=== PATIENT | female | born 1965 | race Caucasian/White ===

== ENCOUNTER → 2017-02-26 14:54 | Outpatient (CLI) | payer BC | END | disposition home or self-care (01) | LOC: D.RAD 14:15 | DX: R68.84 Jaw pain (principal) ==

== ENCOUNTER 2018-06-19 12:39 | Emergency (ER) | payer BC ==
[~2018-06-19] VITALS: Ht 165.1 cm; Wt 84.5 kg
[2018-06-19 12:50] VITALS: Ht 165.1 cm; Wt 84.5 kg
[2018-06-19] MEDS ORDERED: MOBIC7.5 MG PO (12:57)
[2018-06-19] MEDS ORDERED: PROTONIX20 MG PO (12:57)
[2018-06-19] MEDS ORDERED: PREDNISONE20 MG PO (12:57)
[2018-06-19] MEDS ORDERED: FLAGYL500 MG PO (12:59)
[2018-06-19] MEDS ORDERED: CARAFATE1 G PO (12:59)
[2018-06-19] MEDS ORDERED: PROBIOTIC1 EAC1 PO (12:59)
[2018-06-19 14:10] LABS: BASOPHILS 0.3 % (0-2); EOSINOPHILS 0 % (0-7); HEMATOCRIT 35.6 % (36.0-48.0); HEMOGLOBIN 12.2 g/dL (12-16); IMMATURE GRANULOCYTES 0.8 % (0-5); MCH 36.1 pg (26.0-34.0); MCHC 34.3 g/dL (31.0-37.0); MCV 105.3 fL (80.0-100.0); MEAN PLATELET VOLUME 9.4 fL (7.4-10.4); MONOCYTES 4.6 % (2-11); NEUTROPHILS 79.3 % (40-80); PLATELET COUNT 62 10x3/uL (130-400); RBC 3.38 10x6/uL (4.00-5.40); RDW 13.7 % (11.5-14.5); WBC 3.7 10x3/uL (4.8-10.8)
[2018-06-19 14:27] LABS: APPEARANCE HAZY (CLEAR); BILIRUBIN NEGATIVE (NEGATIVE); COLOR YELLOW (YELLOW); GLUCOSE NEGATIVE (NEGATIVE); KETONE NEGATIVE (NEGATIVE); NITRITE NEGATIVE (NEGATIVE); PROTEIN NEGATIVE (NEGATIVE); UROBILINOGEN NORMAL (NORMAL)
[2018-06-19 14:28] LABS: BACTERIA MODERATE /hpf (NONE SEEN); EPITHELIAL CELLS 0-5 /hpf (0-5); MUCUS <1+ /lpf (NONE SEEN); RED CELLS - URINE 0-5 /hpf (0-5); WHITE CELLS - URINE 0-5 /hpf (0-5)
[2018-06-19 14:29] LABS: ALBUMIN 3.8 g/dL (3.4-5.0); ALKALINE PHOSPHATASE 70 U/L (46-116); ALT (SGPT) 35 U/L (10-68); BILIRUBIN - TOTAL 0.73 mg/dL (0.2-1.3); CALC OSMOLALITY 282 mosm/kg (275-300); CALCIUM 8.5 mg/dL (8.5-10.1); CARBON DIOXIDE 30.1 mmol/L (21.0-32.0); CHLORIDE - SERUM 105 mmol/L (98-107); CREATININE - SERUM 0.9 mg/dL (0.6-1.3); GLUCOSE 143 mg/dL (74-106); PROTEIN - SERUM 6.3 g/dL (6.4-8.2); SODIUM 140 mmol/L (136-145); UREA NITROGEN 18 mg/dL (7-18); eGFR NON AFRICAN AMERICAN 69 mL/min (90-120)
[2018-06-19 14:37] LABS: AMYLASE - SERUM 24 U/L (25-115); CKMB 0.8 U/L (0.0-3.6); CREATINE KINASE 32 UL (21-215); LIPASE 211 U/L (73-393); TROPONIN-I < 0.017 ng/mL (0.000-0.060)
[2018-06-19 14:43] LABS: PLATELET ESTIMATE DECREASED
[2018-06-19 18:50] VITALS: BP 126/81
[2018-07-16 13:15] VITALS: Ht 165.1 cm; Wt 84.5 kg
== END 2018-06-19 19:10 | disposition home or self-care (01) ==
LOC: D.ER 12:39
PROVIDERS: Family Medicine
DX: R10.13 Epigastric pain (principal); R19.7 Diarrhea, unspecified; D61.818 Other pancytopenia; Z85.820 Personal history of malignant melanoma of skin

== ENCOUNTER 2018-06-25 17:52 | Emergency (ER) | payer BC ==
[~2018-06-25] VITALS: Ht 165.1 cm; Wt 84.1 kg
[~2018-06-25 17:52] MED LIST: CARAFATE1 G PO; FLAGYL500 MG PO; MOBIC7.5 MG PO; PREDNISONE20 MG PO; PROBIOTIC1 EAC1 PO; PROTONIX20 MG PO
[2018-06-25 18:10] VITALS: Ht 165.1 cm; Wt 84.1 kg
[2018-06-25 18:50] LABS: BASOPHILS 0.2 % (0-2); EOSINOPHILS 0 % (0-7); HEMATOCRIT 35.9 % (36.0-48.0); HEMOGLOBIN 12.5 g/dL (12-16); IMMATURE GRANULOCYTES 0.9 % (0-5); LYMPHOCYTES 15.8 % (15-50); MCH 36.4 pg (26.0-34.0); MCHC 34.8 g/dL (31.0-37.0); MCV 104.7 fL (80.0-100.0); MEAN PLATELET VOLUME 9.2 fL (7.4-10.4); MONOCYTES 9.3 % (2-11); NEUTROPHILS 73.8 % (40-80); PLATELET COUNT 60 10x3/uL (130-400); RBC 3.43 10x6/uL (4.00-5.40); RDW 13.8 % (11.5-14.5); WBC 4.6 10x3/uL (4.8-10.8)
[2018-06-25 19:08] LABS: APTT 27.4 SECONDS (22.8-39.4); INR 1.05 (0.85-1.17); PROTIME 13.3 SECONDS (11.6-15.0)
[2018-06-25 20:25] LABS: PLATELET ESTIMATE DECREASED
[2018-06-25 20:36] LABS: ANION GAP 14.3 mmol/L (8-16); BILIRUBIN - TOTAL 0.67 mg/dL (0.2-1.3); CALCIUM 8.3 mg/dL (8.5-10.1); CARBON DIOXIDE 24.6 mmol/L (21.0-32.0); CREATININE - SERUM 0.9 mg/dL (0.6-1.3); POTASSIUM - SERUM 3.9 mmol/L (3.5-5.1); PROTEIN - SERUM 6.6 g/dL (6.4-8.2)
[2018-06-26 03:07] VITALS: BP 131/79
[2018-07-16 13:15] VITALS: Ht 165.1 cm; Wt 84.1 kg
== END 2018-06-25 21:10 | disposition home or self-care (01) ==
LOC: D.ER 17:52
PROVIDERS: Family Medicine
DX: S20.02XA Contusion of left breast, initial encounter (principal); S20.01XA Contusion of right breast, initial encounter; W18.30XA Fall on same level, unspecified, initial encounter; Y93.89 Activity, other specified; Y92.019 Unspecified place in single-family (private) house as the place of occurrence of the external cause; D69.6 Thrombocytopenia, unspecified; M25.562 Pain in left knee; M25.561 Pain in right knee; Z85.820 Personal history of malignant melanoma of skin

== ENCOUNTER → 2018-07-01 12:29 | Outpatient (CLI) | payer BC ==
[2018-06-25 18:10] VITALS: BMI 30.8
[~2018-07-01 12:29] MED LIST changes: +TYLENOL #4 W/CO1 TAB PO
[2018-07-16 13:15] VITALS: BMI 29.1
== END | disposition home or self-care (01) ==
LOC: D.NM 12:29
DX: R10.11 Right upper quadrant pain (principal)

== ENCOUNTER 2018-07-12 17:13 | Inpatient (IN) | payer BC ==
[~2018-07-12] VITALS: Ht 165.1 cm; Wt 79.5 kg
[~2018-07-12 17:13] MED LIST changes: -TYLENOL #4 W/CO1 TAB PO
[2018-07-12 18:01] VITALS: BP 113/63
[2018-07-12 19:28] LABS: APPEARANCE CLEAR (CLEAR); COLOR STRAW (YELLOW); GLUCOSE NEGATIVE (NEGATIVE); NITRITE NEGATIVE (NEGATIVE); PROTEIN NEGATIVE (NEGATIVE); SPECIFIC GRAVITY 1.015 (1.005-1.020)
[2018-07-12 19:29] LABS: BILIRUBIN NEGATIVE (NEGATIVE); KETONE SMALL mg/dL (NEGATIVE); UROBILINOGEN NORMAL (NORMAL)
[2018-07-12 19:30] LABS: EPITHELIAL CELLS 0-5 /hpf (0-5); RED CELLS - URINE 0-5 /hpf (0-5)
[2018-07-12 19:31] LABS: BACTERIA FEW /hpf (NONE SEEN)
[2018-07-12 19:43] LABS: BASOPHILS 0.2 % (0-2); EOSINOPHILS 0 % (0-7); HEMATOCRIT 37.6 % (36.0-48.0); HEMOGLOBIN 13.2 g/dL (12-16); IMMATURE GRANULOCYTES 0.6 % (0-5); LYMPHOCYTES 27.3 % (15-50); MCH 36.7 pg (26.0-34.0); MCHC 35.1 g/dL (31.0-37.0); MCV 104.4 fL (80.0-100.0); MEAN PLATELET VOLUME 8.3 fL (7.4-10.4); MONOCYTES 12.7 % (2-11); NEUTROPHILS 59.2 % (40-80); PLATELET COUNT 60 10x3/uL (130-400); RDW 13.6 % (11.5-14.5); WBC 4.8 10x3/uL (4.8-10.8)
[2018-07-12 19:54] LABS: ANION GAP 7.4 mmol/L (8-16); BILIRUBIN - TOTAL 0.95 mg/dL (0.2-1.3); CALCIUM 8.7 mg/dL (8.5-10.1); CARBON DIOXIDE 30.7 mmol/L (21.0-32.0); CREATININE - SERUM 0.9 mg/dL (0.6-1.3); POTASSIUM - SERUM 4.1 mmol/L (3.5-5.1); PROTEIN - SERUM 7.1 g/dL (6.4-8.2)
[2018-07-12 20:01] LABS: PLATELET ESTIMATE DECREASED
[2018-07-12 22:03] VITALS: BP 101/53
[2018-07-12] MEDS ORDERED: TYLENOL #4 W/CO1 TAB PO (23:06)
[2018-07-12 23:34] VITALS: BP 130/80
[2018-07-13 01:33] VITALS: BP 118/68; BMI 29.3
[2018-07-13 04:30] VITALS: BP 108/74
[2018-07-13 05:45] LABS: BASOPHILS 0 % (0-2); EOSINOPHILS 0 % (0-7); HEMATOCRIT 36.9 % (36.0-48.0); HEMOGLOBIN 13.1 g/dL (12-16); IMMATURE GRANULOCYTES 0.8 % (0-5); LYMPHOCYTES 19.7 % (15-50); MCH 36.8 pg (26.0-34.0); MCHC 35.5 g/dL (31.0-37.0); MCV 103.7 fL (80.0-100.0); MONOCYTES 1.4 % (2-11); NEUTROPHILS 78.1 % (40-80); PLATELET COUNT 68 10x3/uL (130-400); RBC 3.56 10x6/uL (4.00-5.40); RDW 13.4 % (11.5-14.5); WBC 3.6 10x3/uL (4.8-10.8)
[2018-07-13 06:27] LABS: ALBUMIN 3.8 g/dL (3.4-5.0); ALKALINE PHOSPHATASE 98 U/L (46-116); ALT (SGPT) 27 U/L (10-68); BILIRUBIN - TOTAL 0.68 mg/dL (0.2-1.3); CALC OSMOLALITY 279 mosm/kg (275-300); CALCIUM 8.6 mg/dL (8.5-10.1); CARBON DIOXIDE 27.2 mmol/L (21.0-32.0); CHLORIDE - SERUM 104 mmol/L (98-107); CHOL - HDL RATIO 4.1 ratio (2.3-4.1); CHOLESTEROL, TOTAL 237 mg/dL (0-200); CREATININE - SERUM 0.8 mg/dL (0.6-1.3); HDL CHOLESTEROL 58 mg/dL (32-96); LDL CHOLESTEROL 164 mg/dL (0-100); LDL-HDL RATIO 2.8 ratio (1.5-3.5); LIPASE 445 U/L (73-393); POTASSIUM - SERUM 4.4 mmol/L (3.5-5.1); PROTEIN - SERUM 6.7 g/dL (6.4-8.2); SODIUM 138 mmol/L (136-145); TRIGLYCERIDE 78 mg/dL (30-200); UREA NITROGEN 16 mg/dL (7-18); eGFR NON AFRICAN AMERICAN 79 mL/min (90-120)
[2018-07-13 06:29] LABS: AMYLASE - SERUM 66 U/L (25-115); GLUCOSE 159 mg/dL (74-106)
[2018-07-13 08:08] VITALS: BP 116/66
[2018-07-13 11:25] VITALS: BP 122/79
[2018-07-13 15:35] VITALS: BP 111/73
[2018-07-13 20:58] VITALS: BP 104/75
[2018-07-14 04:30] VITALS: BP 97/56
[2018-07-14 05:50] LABS: BASOPHILS 0 % (0-2); EOSINOPHILS 0 % (0-7); HEMATOCRIT 32.2 % (36.0-48.0); HEMOGLOBIN 11.2 g/dL (12-16); IMMATURE GRANULOCYTES 0.8 % (0-5); LYMPHOCYTES 26.1 % (15-50); MCHC 34.8 g/dL (31.0-37.0); MCV 103.5 fL (80.0-100.0); MEAN PLATELET VOLUME 9.5 fL (7.4-10.4); MONOCYTES 9.8 % (2-11); NEUTROPHILS 63.3 % (40-80); PLATELET COUNT 61 10x3/uL (130-400); RBC 3.11 10x6/uL (4.00-5.40); RDW 13.7 % (11.5-14.5); WBC 3.8 10x3/uL (4.8-10.8)
[2018-07-14 06:03] LABS: CALC OSMOLALITY 282 mosm/kg (275-300); CARBON DIOXIDE 28.8 mmol/L (21.0-32.0); CHLORIDE - SERUM 108 mmol/L (98-107); CREATININE - SERUM 0.8 mg/dL (0.6-1.3); POTASSIUM - SERUM 3.8 mmol/L (3.5-5.1); SODIUM 142 mmol/L (136-145); UREA NITROGEN 12 mg/dL (7-18); eGFR NON AFRICAN AMERICAN 79 mL/min (90-120)
[2018-07-14 06:04] LABS: GLUCOSE 99 mg/dL (74-106)
[2018-07-14 07:42] VITALS: BP 104/74
[2018-07-14 11:28] VITALS: BP 115/62
[2018-07-14 15:40] VITALS: BP 122/66
[2018-07-14 20:12] VITALS: BP 111/63
[2018-07-15 00:43] VITALS: BP 104/66
[2018-07-15 05:34] LABS: BASOPHILS 0 % (0-2); EOSINOPHILS 0.3 % (0-7); HEMATOCRIT 33.4 % (36.0-48.0); HEMOGLOBIN 11.7 g/dL (12-16); IMMATURE GRANULOCYTES 0.6 % (0-5); LYMPHOCYTES 29.7 % (15-50); MCH 36.3 pg (26.0-34.0); MCV 103.7 fL (80.0-100.0); MEAN PLATELET VOLUME 8.7 fL (7.4-10.4); MONOCYTES 11.9 % (2-11); NEUTROPHILS 57.5 % (40-80); PLATELET COUNT 52 10x3/uL (130-400); RBC 3.22 10x6/uL (4.00-5.40); RDW 13.6 % (11.5-14.5); WBC 3.6 10x3/uL (4.8-10.8)
[2018-07-15 05:44] LABS: ANION GAP 9.1 mmol/L (8-16); CALCIUM 8.3 mg/dL (8.5-10.1); CARBON DIOXIDE 29.1 mmol/L (21.0-32.0)
[2018-07-15 05:50] LABS: POTASSIUM - SERUM 3.2 mmol/L (3.5-5.1)
[2018-07-15 05:51] VITALS: BP 134/86
[2018-07-15 07:49] VITALS: BP 122/71
[2018-07-15 15:41] VITALS: BP 111/62
[2018-07-15 20:43] VITALS: BP 119/78
[2018-07-16 05:24] VITALS: BP 110/70
[2018-07-16 06:14] LABS: BASOPHILS 0 % (0-2); EOSINOPHILS 0.8 % (0-7); HEMATOCRIT 34.5 % (36.0-48.0); HEMOGLOBIN 12.1 g/dL (12-16); IMMATURE GRANULOCYTES 0.6 % (0-5); LYMPHOCYTES 31.4 % (15-50); MCH 36.1 pg (26.0-34.0); MCHC 35.1 g/dL (31.0-37.0); MEAN PLATELET VOLUME 9.5 fL (7.4-10.4); MONOCYTES 12.9 % (2-11); NEUTROPHILS 54.3 % (40-80); PLATELET COUNT 60 10x3/uL (130-400); RBC 3.35 10x6/uL (4.00-5.40); RDW 13.5 % (11.5-14.5); WBC 3.6 10x3/uL (4.8-10.8)
[2018-07-16 06:46] LABS: ALBUMIN 3.5 g/dL (3.4-5.0); BILIRUBIN - TOTAL 0.84 mg/dL (0.2-1.3); CALCIUM 8.4 mg/dL (8.5-10.1); CARBON DIOXIDE 31.3 mmol/L (21.0-32.0); CREATININE - SERUM 0.9 mg/dL (0.6-1.3); POTASSIUM - SERUM 3.3 mmol/L (3.5-5.1); PROTEIN - SERUM 6.3 g/dL (6.4-8.2)
[2018-07-16 07:45] VITALS: BP 119/78
[2018-07-16 11:24] VITALS: BP 115/78
[2018-07-16 13:15] VITALS: Ht 165.1 cm; Wt 79.5 kg
[2018-07-16 15:38] VITALS: BP 109/42
== END 2018-07-16 17:10 | disposition home or self-care (01) | DRG 439 ==
LOC: D.ER 17:13 → D.M2 23:58 → OBSVTIME 23:58 → D.M2 23:58 → D.SDCHOLD 07-15 07:56 → D.M2 07-15 07:56
PROVIDERS: Family Medicine; Internal Medicine Nephrology
DX: K85.90 Acute pancreatitis without necrosis or infection, unspecified (principal); D61.818 Other pancytopenia; K29.00 Acute gastritis without bleeding; S30.1XXA Contusion of abdominal wall, initial encounter; W19.XXXA Unspecified fall, initial encounter; Z85.048 Personal history of other malignant neoplasm of rectum, rectosigmoid junction, and anus